=== PATIENT | female | born 1950 | race Caucasian/White ===

== ENCOUNTER 2017-04-07 10:36 | Inpatient (IN) | payer MEDICARE, OTHER ==
[2017-04-07] VITALS (17 sets, daily range): BP systolic 32–192; BP diastolic 19–95; PULSE 58–81; RESP 10–22; O2SAT 94–100
[~2017-04-07] VITALS: Ht 167.6 cm; Wt 67.9 kg
--- NOTE | 2017-04-07 10:50 | ED.REPORT ---
HPI-Overdose/Alcohol Toxicity Date of Service April 07, 2017 ED Provider: Avery Araiza MD 66 year old female presents to the ER via EMS due to suicide attempt by overdose on hydrocodone. Patient was found unresponsive, face-down, apneic and pulseless bu family members just prior to arrival. Suicide note was present at the scene. She was last seen awake and alive two hours prior to arrival. Four rounds of epinephrine, 2mg Narcan, and IV fluids administered en route. Patient went into Torsades en route and was given magnesium and successfully defibrillated to sinus rhythm by medics. Nursing Notes Stated Complaint: OVERDOSE Nursing Notes Reviewed: Yes Allergies: Coded Allergies: belladonna alkaloids (Verified Allergy, Unknown, 04/07/17) cephalexin (Verified Allergy, Unknown, 04/07/17) indomethacin (Verified Allergy, Unknown, 04/07/17) sodium fluoride (Verified Allergy, Unknown, 04/07/17) fluoride preparations Scheduled Fluticasone/Salmeterol (Advair 250-50 Diskus) 60 Puff/Inh Disk 1 PUFF IH BID Tiotropium [place] (Spiriva) 18 Mcg Cap.w.dev 18 MCG IH DAILY Scheduled PRN Albuterol Sulfate (Ventolin HFA Inhaler) 200 Puff/18 Gm Inhaler 1-2 PUFFS INHALATION Q6H PRN PRN For Shortness of Breath Hydrocodone-Acetaminophen 5-325 mg (Hydrocodone-Acetaminophen 5-325 mg) 1 Each Tablet 1 TABLET PO Q8H PRN PRN For Pain General Time Seen by Provider: 10:47 Chief Complaint Drug overdose, Suicidal attempt Hx Obtained From: EMS Arrived By: Ambulance Onset Occurred: Just prior to arrival Symptom Duration: Since onset Similar Sx Previous: No Risk-Overdose/Alcohol Tox )( Suicide Risk Stratification RF Statements: Risk factors reviewed Past Medical History Past Medical History Reports: COPD Review of Systems Unable to Obtain ROS Patient condition Physical Exam Initial Vital Signs Vital Signs (First) Date Time Temp Pulse Resp B/P Pulse Ox O2 Delivery O2 Flow Rate FiO2 04/07/17 10:59 64 10 69/43 100 ET Tube 04/07/17 11:43 33.2 Initial VS: Reviewed Alertness: Positive: Unresponsive Appearance / Presentation: Positive: Obese Respiratory / Chest: Atraumatic, Breath sounds NL, Breath sounds = bilat, No respiratory distress, No rales, No rhonchi, No wheezing Cardiovascular: Heart rate NL, Regular rhythm, Heart sounds NL Abdomen: Soft, No distention Mental Status: Positive: Unresponsive Head / Eyes: Normocephalic Pupils fixed and dilated. Acute hematoma, right anterior scalp. Neck: No midline vertebral tend, No tracheal deviation No stepoff, no deformity. Back: Inspection NL No stepoff or deformity Interpretation & Diagnostics Lab Results Interpretation Result Diagram: 04/07/17 1111 04/07/17 1111 Test 04/07/17 10:43 04/07/17 11:11 04/07/17 11:20 04/07/17 12:59 Prothrombin Time 12.2sec (8.1-12.5) Prothromb Time International Ratio 1.14ratio Activated Partial Thromboplast Time 50.6sec (22.8-33.0) White Blood Count 13.1th/mm3 (3.8-10.1) Red Blood Count 3.82mil/mm3 (3.90-5.20) Hemoglobin 11.4g/dL (12.0-15.6) Hematocrit 38.2% (35.0-46.0) Mean Corpuscular Volume 100.0fL (81-100) Mean Corpuscular Hemoglobin 29.8pg (27.0-35.0) Mean Corpuscular Hemoglobin Concent 29.8% (32.0-37.0) Red Cell Distribution Width 13.2% (12.3-15.4) Platelet Count 225bil/L (150-400) Neutrophils (%) (Auto) 45.0% (40-74) Lymphocytes (%) (Auto) 44.3% (14-46) Monocytes (%) (Auto) 6.8% (4-12) Eosinophils (%) (Auto) 1.5% (0-5) Basophils (%) (Auto) 0.4% (0-3) Sodium Level 142mEq/L (134-144) Potassium Level 5.6mEq/L (3.5-5.2) Chloride Level 101mEq/L (97-108) Carbon Dioxide Level 15mmol/L (18-29) Blood Urea Nitrogen 9mg/dL (8-27) Creatinine 0.76mg/dL (0.57-1.00) Estimat Glomerular Filtration Rate 108mL/min (>59) Glucose Level 278mg/dL (60-99) Calcium Level 8.5mg/dL (8.5-10.1) Magnesium Level 3.6mg/dL (1.6-2.6) Total Bilirubin 0.2mg/dL (0.0-1.2) Aspartate Amino Transf (AST/SGOT) 688U/L (0-50) Alanine Aminotransferase (ALT/SGPT) 508U/L (0-32) Alkaline Phosphatase 110U/L (25-165) Troponin T 0.212ug/L (0.0-0.011) Total Protein 5.0g/dL (6.4-8.4) Albumin 2.9g/dL (3.4-5.0) Alcohols < 10mg/dL (0-10) Lactic Acid Level 10.9mmol/L (0.4-2.0) ECG Interpretation ECG Interpretation: Sinus rhythm, rate [address] T changes Time: 11:25 Interpreted by: ED physician X-Ray Chest Interpretation Chest Xray Interpretation: IMPRESSION: Endotracheal tube with the tip approximately 4 cm above the alek. Small right pneumothorax Right rib fractures Dictated by: Maury Pandey M.D. on 04/07/2017 at 12:33 Approved by: Maury Pandey M.D. on 04/07/2017 at 12:38 ADDENDUM: Findings personally telephoned and discussed with Dr. Shiraz Reyes in the emergency department 1246 hrs. 04/07/17 Dictated by: Maury Pandey M.D. on 04/07/2017 at 12:46 Approved by: Maury Pandey M.D. on 04/07/2017 at 12:47 View: Portable, 1 view Interpretation / Wet Read by: Interpret - Radiologist Chest Xray Interpretation: IMPRESSION: 1. Improved alignment of the tip of the right-sided central line catheter, now overlying the expected location of the mid to upper superior vena cava. 2. Unchanged small right-sided pneumothorax with areas of right hilar/basilar consolidation. 3. Extensive soft tissue emphysema on the right is unchanged. 4. Possible mild vascular congestion. Dictated by: Pelon Schultz M.D. on 04/07/2017 at 12:05 Approved by: Pelon Schultz M.D. on 04/07/2017 at 12:08 View: Portable, 1 view Interpretation / Wet Read by: Interpret - Radiologist CT Head Interpretation IMPRESSION: 1. No acute intracranial hemorrhage. 2. Questionable mild Chiari malformation. The need for dedicated MR imaging may be determined clinically. 3. Age indeterminate left nasal bone fracture. 4. Prominent mucosal thickening of the nasal turbinates may be related to allergies or recent trauma. Superimposed nasal polyp on the right cannot be entirely excluded. Dictated by: Pelon Schultz M.D. on 04/07/2017 at 10:16 Approved by: Pelon Schultz M.D. on 04/07/2017 at 10:20 Study: Head CT no contrast Interpretation / Wet Read by: Interpret - Radiologist Procedures Central Line Placement Central Line Placement Note: 1st attempt failed. second attempt successful. Time: 11:33 Procedure Performed by: ED physician Consent / Setup / Site Prep: No consent - emergent, Time-out performed, Oxygen administered, Pulse oximeter applied, oil tanker captain applied, Hand hygiene observed, Standard surgical scrub, Max barrier precaution, Sterile drapes applied, Position supine Skin Preparation Agent: Hibiclens - Chlorhexidine Side / Location / Ultrasound: Internal jugular right, Ultrasound assisted Catheter / Lumen / Technique: Triple lumen, Seldinger technique, Good blood return, Secured w catheter device Time: 12:08 Procedure Performed by: ED physician Consent / Setup / Site Prep: No consent - emergent, Time-out performed, Oxygen administered, Pulse oximeter applied, oil tanker captain applied, Hand hygiene observed, Standard surgical scrub, Max barrier precaution, Sterile drapes applied, Position supine Side / Location / Ultrasound: Internal jugular right, Ultrasound assisted Catheter / Lumen / Technique: Triple lumen, Seldinger technique, Good blood return, Secured w catheter device Central Line Tip Location: Cath tip good position in the SVC Post-Procedure / Complications: Tolerated procedure well Intubation Intubation Procedure: Cords visualized. Lungs clear bilaterally. No medications necessary due to sedation. Time: 11:26 Procedure Performed by: ED physician Consent / Setup / Site Prep: No consent - emergent, Time-out performed, Oxygen administered, Pulse oximeter applied, oil tanker captain applied, Hand hygiene observed, Stand sterile technique Patient Position: Neutral position Blade / ET Tube / Route: Banks scope, Route: oral ET Confirmation: Direct visualization, BS equal, End tidal CO2 device, CXR, Rising O2 sat Secured / Marked: ET tube device Complications: None Epistaxis Management Time: 13:09 Procedure Performed by: ED physician Consent / Setup / Site Prep: No consent - emergent, Time-out performed, Oxygen administered, Pulse oximeter applied, oil tanker captain applied, Hand hygiene observed, Stand sterile technique Side and Location of Bleed: Nare right - anterior Pre-medication and Procedure: Rapid rhino inserted Post-Procedure / Complications: Bleeding stopped Re-Eval/Medical Decision Med Decision/Clinical Course 66-year-old female presenting after overdose. Patient left a suicide note and appear did overdose on norco. Patient was last seen normal 2 hours prior to overdose. Family found her. They called paramedics and she was asystolic with no breathing in the field. ROSC was obtained after 4 rounds of epinephrine, 2 mg of magnesium for torsades, shocked 1. On arrival patient with pupils fixed and dilated. She was unresponsive. Her blood pressure is initially normal then drops to the 30s over 20s. Given 3 L normal saline with no improvement. CT head no acute pathology. Central line was placed. Patient was started on pressors levophed. Patient was intubated. Family did not arrive. Significant other did arrive did not think patient would want any further care. We are attempting to contact family at time of transfer to ICU. Time of transfer, patient developed epistaxis. Rhino Rocket placed. Discussed with cardiology who agreed with plan and recommended stat echo which is ordered. Admitted to ICU. Source of Hx: Old records Re-Evaluation/Progress #1: Time of Eval: 11:04 Re-Evaluation/Progress Note: Discussed treatment plan with nurse and the rest of the medical team. Re-Evaluation/Progress #2: Time of Eval: 11:26 Re-Evaluation/Progress Note: Performed intubation. Re-Evaluation/Progress #3: Time of Eval: 11:33 Re-Evaluation/Progress Note: Performed central line placement. Consultation #1: Referral / Consult Name: Eileen Bermeo MD Consulted With: Cardiology Call Returned at: 11:08 Note: Discussed patient case with Dr. eBrmeo, Cardiology, who is currently present in the department. Consultation #2: Referral / Consult Name: Eileen Bermeo MD Consulted With: Cardiology Call Returned at: 12:53 Note: Can order STAT echocardiogram. Consultation #3: Call Returned at: 12:55 Note: BLOCK [employer]ASER successfully contacted significant other of the patient. Significant other is en route. Consultation #4: Referral / Consult Name: Hector Parker MD Consulted With: Hospitalist Call Returned at: 12:59 Certified Personal Chef: Agrees with eval, Agrees with plan, Accepts admit Counseled Regarding: Diagnosis, Lab results, Need for admission Discharge & Departure Impression: Primary Impression: Opiate overdose Additional Impressions: Anoxic brain injury Cardiac arrest Pneumothorax Disposition: ADMITTED TO HOSPITAL Discharge Condition All VS Reviewed: Yes Condition: Critical Referrals: Niko Marquez MD (PCP) Crit Care Except Billable Proc Time Spent: 165-194 minutes (183) Services Performed: Patient management by me, Time spent at bedside, Reviewing test results, Reviewing imaging, Discussing patient care, Documentation in record, Time with fam/surrogate Scribe Attestation Portions of this note were transcribed by Davey Lipscomb. I, Dr. Araiza, personally performed the history, physical exam and medical decision-making; I reviewed and confirmed the accuracy of the information in the transcribed note. Signed by: Concetta Lee, 04/07/2017 at 13:25 copies to: Niko Marquez MD, Ben M MD April 07, 2017 10:50 DAVEY LIPSCOMB April 07, 2017 10:57
[2017-04-07] MEDS ORDERED: 0.9% Sodium Chloride 1,000 ML IV ONE (11:01)
[2017-04-07 11:18] LABS: BASOPHILS % (AUTO) 0.4 % (0-3); EOSINOPHILS % (AUTO) 1.5 % (0-5); MONOCYTES % (AUTO) 6.8 % (4-12); Mean Corpuscular Hemoglobin 29.8 pg (27.0-35.0); Platelet Count 225 bil/L (150-400)
--- NOTE | 2017-04-07 11:22 | DRSVH ---
PROCEDURE: CT BRAIN WITHOUT CONTRAST ([id number]) INDICATIONS: ROSC TECHNIQUE: Noncontrast 4.5 mm thick angled axial sections acquired from the foramen magnum to the vertex, with c oronal reformats. COMPARISON: None. FINDINGS: Image quality: Diagnostic. Brain: There is no acute intra-axial or extra-axial hemorrhage. No extra-axial fluid collection is i dentified. There is no midline shift or mass effect. The orbits are grossly unremarkable. No large areas of diffusely decreased attenuation are evident within the brain to suggest diffuse cer ebral edema. No focal parenchymal abnormality is identified. The cerebellar tonsils appear to exten d slightly beyond the foramen magnum, not well evaluated on this exam. The ventricles and cortical sulci are age-appropriate. Bones: Calvarium and visualized facial bones are grossly intact. The imaged paranasal sinuses and m astoid air cells are clear. Moderate mucosal thickening involving the nasal turbinates are moderatel y prominent. Mild irregularity of the anterior left nasal bone is present. IMPRESSION: 1. No acute intracranial hemorrhage. 2. Questionable mild Chiari malformation. The need for dedicated MR imaging may be determined clini david. 3. Age indeterminate left nasal bone fracture. 4. Prominent mucosal thickening of the nasal turbinates may be related to allergies or recent trauma . Superimposed nasal polyp on the right cannot be entirely excluded. Dictated by: Pelon Schultz M.D. on 04/07/2017 at 10:16 Approved by: Pelon Schultz M.D. on 04/07/2017 at 10:20
[2017-04-07] MEDS ORDERED: HYDR-4003 PO (11:37)
[2017-04-07] MEDS ORDERED: ALBU18HF INHALATION (11:37)
[2017-04-07 11:38] LABS: INR 1.14 ratio
[2017-04-07 11:56] LABS: Magnesium 3.6 mg/dL (1.6-2.6)
[2017-04-07 12:03] LABS: TROPONIN T 0.212 ug/L (0.0-0.011)
--- NOTE | 2017-04-07 12:29 | DRSVH ---
PROCEDURE: X-RAY CHEST ONE VIEW, PORTABLE ([id number]) INDICATIONS: CENTRAL LINE PLACEMENT TECHNIQUE: One view of the chest was acquired. COMPARISON: [facility], CR, XR CHEST 1VW (PORTABLE), 04/07/2017, 11:12. FINDINGS: Surgical changes and devices: Endotracheal tube appears in normal position approximately 3.5 cm above the alek. A central line from right sided approach traverses across the midline towards the left, uncertain positioning but certainly not in the expected position of the superior vena cava. Lungs and pleura: No pleural effusions but the right lower lung is poorly visualized and the lower t hird chest is not fully included on this study. There is prominent subcutaneous emphysema as was pre viously the case over the right lateral chest associated with multiple moderately displaced rib fract ures. Also, a stable appearing small right lateral pneumothorax at the mid chest level measuring maureen roximately 1.2 cm in maximal thickness. Lungs are abnormal with alveolar infiltration across the min or fissure area, possibly pulmonary contusion in this clinical circumstance. Mediastinum: Mediastinal contours appear normal. Heart size is normal. Bones and chest wall: No suspicious bony lesions. Overlying soft tissues appear unremarkable. IMPRESSION: 1. Right internal jugular central line positioning is abnormal causing the midline, directed towards the aortic arch. This may represent intra-arterial positioning-please correlate clinically. 2. Endotracheal tube remains in normal position. 3. Right-sided small stable pneumothorax laterally at the mid chest level,, subcutaneous emphysema o rajeev the right chest appears also stable. Multiple right-sided moderately displaced rib fractures. U nderlying right pulmonary contusion mid lung. Dictated by: Royal Boss M.D. on 04/07/2017 at 12:23 Approved by: Royal Boss M.D. on 04/07/2017 at 12:27
[2017-04-07] MEDS ORDERED: Norepinephrine 8,000 mCg/250 mL NS Premix IV ONE (12:36)
[2017-04-07] MEDS ORDERED: Norepineph 8,000 mCg/250 mL NS 8,000 MCG in IV Premix 1 EACH IV SCH (12:40)
--- NOTE | 2017-04-07 12:40 | DRSVH ---
PROCEDURE: X-RAY CHEST ONE VIEW, PORTABLE ([id number]) INDICATIONS: ENDOTRACHEAL TUBE PLACEMENT TECHNIQUE: One view of the chest was acquired. COMPARISON: , CR, XR CHEST 1VW (PORTABLE), 04/07/2017, 11:55. FINDINGS: Surgical changes and devices: Endotracheal tube is seen with the tip approximately 4 cm above the car patty. Lungs and pleura: No pleural effusions. There is a small right lateral pneumothorax. Elsewhere, no f ocal consolidation Mediastinum: Mediastinal contours appear normal. Heart size is normal. Bones and chest wall: There is extensive right chest wall emphysema. Multiple right rib fractures IMPRESSION: Endotracheal tube with the tip approximately 4 cm above the alek. Small right pneumothorax Dictated by: Maury Pandey M.D. on 04/07/2017 at 12:33 Approved by: Maury Pandey M.D. on 04/07/2017 at 12:38
[2017-04-07] MEDS ORDERED: Alum-Mag Hydrox-Simeth 30 mL Suspension PO PRN (13:05)
[2017-04-07] MEDS ORDERED: Ondansetron 2 mg/mL 2 mL Inj IVPUSH PRN (13:05)
--- NOTE | 2017-04-07 13:10 | DRSVH ---
PROCEDURE: X-RAY CHEST ONE VIEW, PORTABLE ([id number]) INDICATIONS: post-central line TECHNIQUE: One view of the chest was acquired. COMPARISON: [facility], CR, XR CHEST 1VW (PORTABLE), 04/07/2017, 11:55. FINDINGS: Surgical changes and devices: Improved alignment of the distal aspect of the right and right-sided ce ntral line catheter is identified with the tip now overlying the mid to upper superior vena cava, dir ected to the right of midline (previously seen directed to the left of midline). Endotracheal tube i s unchanged in alignment and noted to be positioned above the level of the alek. Lungs and pleura: Evaluation of the lungs is suboptimal on this exam. However, there appears to cont inue to be a small right-sided pneumothorax with additional areas of pulmonary consolidation, not sig nificantly changed. Prominent perihilar lung markings are seen on the left without lobar consolidati on or definite left-sided pleural effusion. Extensive soft tissue emphysema on the right is present. Mediastinum: Mediastinal contours appear normal. Heart size is normal. Bones and chest wall: No suspicious bony lesions. Overlying soft tissues appear unremarkable. IMPRESSION: 1. Improved alignment of the tip of the right-sided central line catheter, now overlying the expecte d location of the mid to upper superior vena cava. 2. Unchanged small right-sided pneumothorax with areas of right hilar/basilar consolidation. 3. Extensive soft tissue emphysema on the right is unchanged. 4. Possible mild vascular congestion. Dictated by: Pelon Schultz M.D. on 04/07/2017 at 12:05 Approved by: Pelon Schultz M.D. on 04/07/2017 at 12:08
--- NOTE | 2017-04-07 13:57 | ABG ---
DateTimeAnalyzed 13:52:00 -_ pH ____6.956 - 7.350 7.450 pCO2 ___70.0__ -mmHg 35.0 45.0 pO2 ___98.5__ -mmHg 69.0 116 HCO3- ___14.8__ -mmol/L 22.0 26.0 ABE __-17.5__ -mmol/L -2.0 2.0 tHb ___10.6__ -g/dL O2Hb ___91.0__ -% COHb ____1.9__ -% MetHb ____2.0__ -% sO2 ___94.7__ -% FIO2 ___50.0__ -% PEEP ____5.0__ -cmH2O Set_RR ___16.0__ -b/min Vt __400.0__ -L Drawn By gj - Date/Time Notified____ 13:56:00 -_ Spontaneous_RR ___16.0__ -b/min Oxygen Device 1 VENTILATOR - Notified By ams - Notified Whom Dr Kendregan - B 761 -mmHg tO2 ___13.7__ -Vol% Kirk test N/A -
[2017-04-07] MEDS ORDERED: TIOT18CA3 IH (14:00)
[2017-04-07] MEDS ORDERED: ADV250INH IH (14:00)
[2017-04-07] MEDS ORDERED: DEXTROSE 5% IV SCH ×2 (14:15→17:15)
[2017-04-07] MEDS ORDERED: ACETYLCYSTEINE IV SCH ×2 (14:15→17:15)
--- NOTE | 2017-04-07 14:52 | ABG ---
DateTimeAnalyzed 14:48:00 -_ pH ____7.003 - pCO2 ___82.0__ -mmHg pO2 ___64.2__ -mmHg HCO3- ___19.4__ -mmol/L ABE __-12.8__ -mmol/L tHb ___10.6__ -g/dL O2Hb ___83.4__ -% COHb ____1.9__ -% MetHb ____1.9__ -% sO2 ___86.7__ -% FIO2 ___50.0__ -% PEEP ___10.0__ -cmH2O Set_RR ___22.0__ -b/min Vt __500.0__ -L Drawn By as - Date/Time Notified____ 14:51:00 -_ Spontaneous_RR ___22.0__ -b/min Oxygen Device 1 VENTILATOR - Notified By ams - Notified Whom dr kendregan - B 761 -mmHg tO2 ___12.5__ -Vol% Kirk test N/A -
[2017-04-07] MEDS ORDERED: Acetylcysteine 5,000 mg/500 mL D5W IV SCH ×2 (15:15)
--- NOTE | 2017-04-07 17:56 | NUR ---
Admit Asked to go to ED to help with an overdose patient. When patient stable, it was decided to bring patient up to CCU on ventilator at 50%, 10, 500, 22, on Norepi at 0.5 mcg, on hypothermia protocol. Settled in on same settings. BP at time of admit 132/45. Sats 100%. Patient unresponsive to pain/stimuli. Pupils fixed and dilated. Nose bleed oozing with packing in place. OGT putting out blood. Crepitus noted when chest palpated. Abdomen distended. Thermistor Posada in place cooing blankets on. Core temp 31 on arrival and stayed there. Norepi titrated down to 0.3 mcg and IVF at maintenance rate of 100 ml/hr. Critical Tylenol level reported to MD. Acetylcysteine bolus ordered and given. Patients BP dropped and HR dropped so CPR ensued at 1440. MDs present at the time of code. See Resuscitation Flowsheet. Pulse and BP stable code stopped at 1452 during which time, MDs attempting to reach next of kin for resuscitation wishes. DNR orders received. Patients bp and hr dropped again and and went asystole. Patient at 1520 while intubated. Next of kin (significant other DPOA) notified and arrived with DPOA paperwork. S.O. took all belongings home, but did not wish to see patient. [facility] called. [facility] called. Patient prepped for renata and all paperwork completed. To renata at 1615.
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
--- NOTE | 2017-04-08 10:55 | PROCED ---
[address] [address] PROCEDURE NOTE PATIENT: JOSSUE STOVALL : 1950 MR#: [id number] ADMIT: 04/07/2017 JOB ID: [id number] DATE OF SERVICE: 04/07/2017 PREOPERATIVE DIAGNOSIS(ES): POSTOPERATIVE DIAGNOSIS(ES): SURGEON: Dom Christine MD. NARRATIVE: I was called emergently to the bedside of an ICU patient. I presented to the ICU. I was told by the ICU team that she had suffered a cardiac arrest and had not regained consciousness. Upon entering the room, respiratory therapist, a medical supervisor and the primary hospitalist on service were delivering bag-mask ventilation to an unconscious patient with sats in the high 80s. Initially, I took over the head of the bed and delivered aggressive jaw thrust while the respiratory therapist continued bag-mask ventilation. We did this for approximately 1 minute and showed improved oxygen saturation up to 100%. After pre-oxygenating with bag-mask ventilation, I used a GlideScope to obtain a grade 1 view. Initially, when attempting to pass the endotracheal tube, I could not direct it anterior enough to intubate the trachea leaving the GlideScope in place. I removed the endotracheal tube, applied more significant bend to the endotracheal tube stylets and on my second attempt, intubated the patient, who showed color change with bag-mask ventilation, bilateral breath sounds and bilateral chest rise. The endotracheal tube was positioned at 24 cm at the lip. I asked the ICU team to order a chest x-ray and verify tube placement, for which they confirmed responsibility for. I left the patient with 100% saturation on pulse oximetry and an otherwise hemodynamically stable patient. All other care was per ICU team direction.
[2017-04-13] MEDS ORDERED: 0.9% Sodium Chloride 1,000 ML IV ONE ×2 (09:50)
== END 2017-04-07 15:30 | disposition expired | DRG 918 ==
LOC: EDBD 10:36 → EDUNIT# 10:36 → SED 10:36 → PCC 13:03 → UNDOADMIN 13:03 → PCC 14:46 → CCU 14:53
PROVIDERS: ADMIT Internal Medicine; ATTEND Internal Medicine
PROC: 5A1935Z Respiratory Ventilation, Less than 24 Consecutive Hours (ICD-10-PCS; principal; 2017-04-07)
PROC: 2Y41X5Z Packing of Nasal Region using Packing Material (ICD-10-PCS; 2017-04-07)
PROC: 0BH17EZ Insertion of Endotracheal Airway into Trachea, Via Natural or Artificial Opening (ICD-10-PCS; 2017-04-07)
PROC: 4A033R1 Measurement of Arterial Saturation, Peripheral, Percutaneous Approach (ICD-10-PCS; 2017-04-07)
DX: T40.2X2A Poisoning by other opioids, intentional self-harm, initial encounter (principal); Y92.013 Bedroom of single-family (private) house as the place of occurrence of the external cause; R04.0 Epistaxis; I46.9 Cardiac arrest, cause unspecified